=== PATIENT | female | born 1995 | race Asian ===

== ENCOUNTER 2017-02-14 13:02 | Emergency (ER) | payer OTHER ==
[~2017-02-14] VITALS: Ht 157.5 cm; Wt 48.0 kg
[~2017-02-14 13:02] MED LIST: BCPILLS PO
[2017-02-14 13:07] VITALS: TEMP 36.9; Ht 157.5 cm; Wt 48.0 kg
--- NOTE | 2017-02-14 13:34 | EMERGENCY ROOM VISIT NOTE ---
History Report prepared by Maricarmen: Franki Busby Under the Supervision of: Dr. Isiah Callaway D.O. First contact with patient: 13:11 Chief Complaint: MENTAL HEALTH EVALUATION Stated Complaint: [facility] History of Present Illness The patient is a 21 year old female who presents to the Emergency Room with complaints of an episode of self-harm that occurred last night. She is a [employer] student. The patient says that her roommates called the police on her because "they're assholes". She says that "it wasn't a big deal". The patient says that they knew that she was upset so they decided to call the police. She states that a bunch of stuff happened in the past that caused her to be upset, and recently, she had issues with a farhana. The patient says that she cut her left wrist with scissors and then with a knife. She says that she feels "numb". The patient states that she has been depressed since 8th grade, but it was never that bad. She states that she stopped taking her depression medications 2 years ago because she didn't like taking them. The patient notes that she has been admitted for mental health before. She was admitted here for 1 night, and was in the [facility] for 7 days. She drinks alcohol, smokes marijuana, and takes Xanax and Cocaine. She does not take any IV drugs. She smoked cigarettes last night. She has no surgical history. Source of History: patient Onset: Last night Position: wrist (left) Quality: other (self-harm with scissors and knife) Timing: other (episdoe) Note: Associated symptoms: Says that she felt "numb". Review of Systems See HPI for pertinent positives & negatives. A total of 10 systems reviewed and were otherwise negative. Past Medical & Surgical Medical Problems: (1) Anxiety (2) Depression Family History No significant family history Social History Smoking Status: Never Smoker Alcohol Use: occasionally Drug Use: cocaine, marijuana Marital Status: in relationship Housing Status: lives with roommate Occupation Status: [employer] student Current/Historical Medications Scheduled Control Pills ( Control Pills), 1 TAB PO DAILY Allergies Coded Allergies: No Known Allergies (Unverified , 09/29/15) Physical Exam Vital Signs Date Time Temp Pulse Resp B/P Pulse Ox O2 Delivery O2 Flow Rate FiO2 02/14/17 17:16 74 16 128/69 100 02/14/17 14:35 72 20 147/74 98 Room Air 02/14/17 13:07 36.9 90 20 137/88 99 Room Air Physical Exam GENERAL: Patient is awake, alert, tearful and mildly anxious appearing. EYES: The conjunctivae are clear. The pupils are round and reactive. EARS, NOSE, MOUTH AND THROAT: The nose is without any evidence of any deformity. Mucous membranes are moist tongue is midline NECK: The neck is nontender and supple. RESPIRATORY: Normal respiratory effort is noted there is no evidence of wheezing rhonchi or rales CARDIOVASCULAR: Regular rate and rhythm noted there no murmurs rubs or gallops normal S1 normal S2 GASTROINTESTINAL: The abdomen is soft. Bowel sounds are present in all quadrants. Abdomen is nontender MUSCULOSKELETAL/EXTREMITIES: There is no evidence of gross deformity full range of motion is noted in the hips and shoulders SKIN: Linear superficial abrasions to left wrist, no active bleeding was noted. NEUROLOGIC: Patient is awake alert and oriented x3 strength is symmetric patellar reflexes are 2+ bilaterally PSYCH: Patient is anxious and tearful appearing, affect is flat. Patient makes poor eye contact, and is very vague about any suicidal ideations at this time. Medical Decision & Procedures Laboratory Results 02/14/17 13:40 Red Blood Count 4.02, Mean Corpuscular Volume 92.3, Mean Corpuscular Hemoglobin 30.6, Mean Corpuscular Hemoglobin Concent 33.2, Mean Platelet Volume 9.3, Neutrophils (%) (Auto) 66.2, Lymphocytes (%) (Auto) 26.1, Monocytes (%) (Auto) 5.0, Eosinophils (%) (Auto) 2.4, Basophils (%) (Auto) 0.2, Neutrophils # (Auto) 5.54, Lymphocytes # (Auto) 2.19, Monocytes # (Auto) 0.42, Eosinophils # (Auto) 0.20, Basophils # (Auto) 0.02 02/14/17 13:40 Test 02/14/17 13:30 02/14/17 13:40 Urine Color DK YELLOW Urine Appearance CLEAR (CLEAR) Urine pH 6.0 (4.5-7.5) Urine Specific [place] 1.029 (1.000-1.030) Urine Protein NEG (NEG) Urine Glucose (UA) NEG (NEG) Urine Ketones 1+ (NEG) Urine Occult Blood NEG (NEG) Urine Nitrite NEG (NEG) Urine Bilirubin NEG (NEG) Urine Urobilinogen NEG (NEG) Urine Leukocyte Esterase NEG (NEG) Urine Test NEG (NEG) Urine Opiates Screen NEG (NEG) Urine Methadone, Qualitative NEG (NEG) Urine Barbiturates NEG (NEG) Urine Phencyclidine (PCP) Level NEG (NEG) Ur Amphetamine/Methamphetamine NEG (NEG) MDMA (Ecstasy) Screen NEG (NEG) Urine Benzodiazepines Screen POS (NEG) Urine Cocaine Metabolite NEG (NEG) Urine Marijuana (THC) POS (NEG) White Blood Count 8.38 K/uL (4.8-10.8) Red Blood Count 4.02 M/uL (4.2-5.4) Hemoglobin 12.3 g/dL (12.0-16.0) Hematocrit 37.1 % (37-47) Mean Corpuscular Volume 92.3 fL (80-100) Mean Corpuscular Hemoglobin 30.6 pg (25-34) Mean Corpuscular Hemoglobin Concent 33.2 g/dl (32-36) Platelet Count 346 K/uL (130-400) Mean Platelet Volume 9.3 fL (7.4-10.4) Neutrophils (%) (Auto) 66.2 % Lymphocytes (%) (Auto) 26.1 % Monocytes (%) (Auto) 5.0 % Eosinophils (%) (Auto) 2.4 % Basophils (%) (Auto) 0.2 % Neutrophils # (Auto) 5.54 K/uL (1.4-6.5) Lymphocytes # (Auto) 2.19 K/uL (1.2-3.4) Monocytes # (Auto) 0.42 K/uL (0.11-0.59) Eosinophils # (Auto) 0.20 K/uL (0-0.5) Basophils # (Auto) 0.02 K/uL (0-0.2) RDW Standard Deviation 42.8 fL (36.4-46.3) RDW Coefficient of Variation 12.6 % (11.5-14.5) Immature Granulocyte % (Auto) 0.1 % Immature Granulocyte # (Auto) 0.01 K/uL (0.00-0.02) Anion Gap 8.0 mmol/L (3-11) Est Creatinine Clear Calc Drug Dose 76.4 ml/min Estimated GFR () 108.1 Estimated GFR (Non- 93.3 BUN/Creatinine Ratio 15.6 (10-20) Calcium Level 9.0 mg/dl (8.5-10.1) Total Bilirubin 0.9 mg/dl (0.2-1) Direct Bilirubin 0.1 mg/dl (0-0.2) Aspartate Amino Transf (AST/SGOT) 20 U/L (15-37) Alanine Aminotransferase (ALT/SGPT) 20 U/L (12-78) Alkaline Phosphatase 45 U/L (45-117) Total Protein 8.0 gm/dl (6.4-8.2) Albumin 4.0 gm/dl (3.4-5.0) Thyroid Stimulating Hormone (TSH) 1.980 uIu/ml (0.300-4.500) Salicylates Level < 1.7 mg/dl (2.8-20) Acetaminophen Level < 2 ug/ml (10-30) Ethyl Alcohol mg/dL < 3.0 mg/dl (0-3) Laboratory results per my review. ED Course 1314: The patient was evaluated in room A6. A complete history and physical examination were performed. 1626: I talked to the mental health high risk case manager regarding the patient. The patient is very strongly against inpatient treatment and she strongly denies any suicidal ideations. The high risk case manager believes that the patient is okay to go home. 1628: Upon reevaluation, the patient is resting comfortably. I discussed the results and treatment plan with her. She verbalized agreement of the treatment plan. She was discharged home. Medical Decision Prior records/ancillary studies reviewed. Triage Nursing notes reviewed. Additional history obtained from high risk case manager. Differential diagnosis: Etiologies such as mood disorder, infection, hypoglycemia, electrolyte abnormalities, cardiac sources, intracerebral event, toxicologic, neurologic, as well as others were entertained. The patient is a 21-year-old female who presented to the emergency apartment for an evaluation of mental health problems. The patient has had stressors recently including school as well as a recent breakup with a significant other. The patient made suicidal ideations known to her friends when she was drinking alcohol last evening. She went to class today and was brought to the emergency apartment for a 302 petition. The patient was medically cleared in the emergency department. She was evaluated by the mental health high risk case manager in the emergency department. At this time she does not meet criteria for involuntary admission. She does not wish to have voluntary admission and I do not feel she would benefit from this at this time. The patient does not have follow-up scheduled acutely and does not appear to be compliant with medications she was prescribed in the past. The mental health emergency department high risk case manager was able to evaluate the patient and then set her up with outpatient follow-up. The patient was encouraged to avoid any further alcohol or drug use. She was also encouraged to call crisis or return to the emergency apartment immediately if symptoms change worsen or the need arises. Otherwise she was encouraged to follow-up as an outpatient as scheduled. Consults Time Called: -- Consulting Physician: Mental health high risk case manager Returned Call: [phone] (in person) I talked to the mental health high risk case manager regarding the patient. The patient is very strongly against inpatient treatment and she strongly denies any suicidal ideations. The high risk case manager believes that the patient is okay to go home. Impression Primary Impression: Depression Additional Impressions: Self-inflicted laceration of wrist Suicidal ideation Scribe Attestation The scribe's documentation has been prepared under my direction and personally reviewed by me in its entirety. I confirm that the note above accurately reflects all work, treatment, procedures, and medical decision making performed by me. Departure Information Dispostion Home / Self-Care Referrals [facility] ([facility]) Forms HOME CARE DOCUMENTATION FORM, IMPORTANT VISIT INFORMATION, School Instructions, Work Instructions Patient Instructions Depression Counseling, [facility] Additional Instructions Follow-up with [facility] as instructed. Call crisis or return to the emergency department immediately if symptoms change worsen or the need arises. Avoid any further alcohol or drug use. Problem Qualifiers Primary Impression: Depression Depression Type: unspecified Qualified Codes: F32.9 - Major depressive disorder, single episode, unspecified Additional Impressions: Self-inflicted laceration of wrist Encounter type: initial encounter Laterality: left Qualified Codes: S61.512A - Laceration without foreign body of left wrist, initial encounter
[2017-02-14 13:52] LABS: URINE APPEARANCE CLEAR (CLEAR); URINE BILIRUBIN NEG (NEG); URINE COLOR DK YELLOW; URINE NITRITE NEG (NEG); URINE SPECIFIC GRAVITY 1.029 (1.000-1.030); UROBILINOGEN NEG (NEG)
[2017-02-14 13:53] LABS: MANUAL MICROSCOPIC REQUIRED? NO; REVIEW REQ? NO
[2017-02-14 13:55] LABS: BASO % 0.2 %; BASO ABS # 0.02 K/uL (0-0.2); COMPLETE YES; EOS % 2.4 %; HEMATOCRIT 37.1 % (37-47); IG% 0.1 %; LYMPH % 26.1 %; LYMPH ABS # 2.19 K/uL (1.2-3.4); MEAN CELL VOLUME 92.3 fL (80-100); MEAN CORPUSCULAR HEMOGLOBIN 30.6 pg (25-34); MEAN CORPUSCULAR HGB CONC 33.2 g/dl (32-36); MEAN PLATELET VOLUME 9.3 fL (7.4-10.4); NEUT % 66.2 %; PLATELET COUNT 346 K/uL (130-400); RED BLOOD COUNT 4.02 M/uL (4.2-5.4); WHITE BLOOD COUNT 8.38 K/uL (4.8-10.8)
[2017-02-14 14:16] LABS: BUN/CREATININE RATIO 15.6 (10-20); CREATININE 0.89 mg/dl (0.60-1.20); POTASSIUM 3.8 mmol/L (3.5-5.1)
[2017-02-14 14:24] LABS: BENZODIAZEPINE, URINE POS (NEG); COCAINE,URINE NEG (NEG); PHENCYCLIDINE, URINE NEG (NEG)
[2017-02-14 14:26] LABS: THYROID STIMULATING HORMONE 1.98 uIu/ml (0.300-4.500)
[2017-02-14 14:27] LABS: ACETAMINOPHEN < 2 ug/ml (10-30)
[2017-02-14 17:16] VITALS: BP 128/69; PULSE 74; O2SAT 100
[2017-02-17 15:39] LABS: HYDROXYETHYLFLURAZEPAM CONF NEGATIVE NG/ML (CUTOFF=50); HYDROXYMIDAZOLAM NEGATIVE NG/ML (CUTOFF=50); HYDROXYTRIAZOLAM CONF NEGATIVE NG/ML (CUTOFF=50); TEMAZEPAM CONF NEGATIVE NG/ML (CUTOFF=50)
[2017-02-21 14:39] LABS: SYNTHETIC CANNABINOIDS QL URIN NEGATIVE (Negative)
== END 2017-02-14 17:17 | disposition home or self-care (01) ==
LOC: C.EDB 13:03 → C.EDA 17:17
DX: F32.9 Major depressive disorder, single episode, unspecified (principal); R45.851 Suicidal ideations; S60.912A Unspecified superficial injury of left wrist, initial encounter; W45.8XXA Other foreign body or object entering through skin, initial encounter; F41.9 Anxiety disorder, unspecified